=== PATIENT | female | born 1965 | race Caucasian/White ===

== ENCOUNTER 2021-05-17 09:00 | Outpatient (RCR) | payer MEDICARE, OTHER, SELFPAY ==
--- NOTE | 2021-05-17 11:34 | PTOPEVAL ---
Thank you for referring Michelle Kearney to [facility].? The patient is scheduled to be seen for therapy? 1 x/week for 8 weeks. Please review, sign, date and return this plan of care JIGNESH. I agree with and certify that the following plan of care is medically necessary. Referring Physician Date Attending Provider: Yocasta Robles, CAFETERIA ATTENDANT-BC Referring Provider: Yocasta Robles, CAFETERIA ATTENDANT-BC Diagnosis Grayson OA of knees Additional Evaluation Detail She received HH therapy for a few weeks 2 yrs ago. Current weight ~320# Dep with donning knee braces. She has had the braces since 03/26. She does not have access to a pool after therapy is completed. Subjective Information Report limitations with Query Text:As Reported By Patient/ walking and standing for the Family past year. States she is unable to walk from parking lot to door at the grocery store. She requires a motorize cart at the store. She is able to shari standing for 1-2 min intervals, then requires a seated rest. She performs most of her activities in seated position. Her hobbies consist of movies, shopping. Denies performing HEP. 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
--- NOTE | 2021-05-20 10:00 | PCPTNOTE ---
Patient called & cancelled scheduled appointment this date due to having a sick child.
--- NOTE | 2021-05-29 08:49 | PCPTNOTE ---
Patient called & cancelled scheduled appointment this date due to son being in the hospital.
--- NOTE | 2021-06-05 10:40 | PCPTNOTE ---
Patient did not show up for scheduled appointment this date. Called & spoke to patient & she stated she just bought her son home from the hospital & forgot to call to cancel.
--- NOTE | 2021-06-11 12:46 | PCPTNOTE ---
Addendum entered by Meliza Quinn, HEAD TRACK COACH 06/11/21 12:50: Informed patient during last call if she did not show up for her next appointment, she would be discharged & will need new orders to return. Original Note: Patient did not show up for scheduled appointment this date.
--- NOTE | 2021-06-11 15:30 | PCPTNOTE ---
Admitting Provider: Attending Provider: Yocasta Robles, PANTOMIMIST-BC Patient:Michelle Kearney Date of :1965 Physical Therapy Discharge Summary Patient has not returned for any further treatments since initial evaluation on 05/17/2021, therefore she will be discharged at this time. Patient?s had a total of 1 visits with 4 no show or canceled visits The goals have been not met. Thank you for referring this patient to [facility]. Please review, sign, date and return this discharge summary JIGNESH. I have been updated about the patient's current status and I agree with discharge from the above service at this time. Referring Physician Date
== END 2021-06-12 09:10 | disposition home or self-care (01) ==
LOC: ANHPT 09:00
PROVIDERS: PCP Internal Medicine; Referring Provider Nurse Practitioner Family; Visit Provider Nurse Practitioner Family
DX: M25.561 Pain in right knee (principal); M25.562 Pain in left knee; M17.0 Bilateral primary osteoarthritis of knee
CPT/HCPCS: 97110; 97163

== ENCOUNTER 2021-12-23 11:58 | Emergency (ER) | payer MEDICARE, MEDICAID, SELFPAY ==
--- NOTE | ~2021-12-23 | XR_ITS ---
EXAMINATION: XR chest 2V DATE: 12/23/2021 13:24 INDICATION: Chest pressure. Shortness of breath. TECHNIQUE: Frontal and lateral views of the chest were obtained. COMPARISON: Chest 2 views 08/13/2004, CT abdomen and pelvis 12/27/2015 FINDINGS: There is no pneumonia, pleural effusion, pneumothorax. The heart size is normal. IMPRESSION: 1. No acute cardiopulmonary disease. Reviewed, dictated and finalized at location A.
--- NOTE | 2021-12-23 12:00 | ECG_ITS ---
Measurements Intervals [place] Rate: 84 P: 53 DC: 162 QRS: -44 QRSD: 112 T: 16 QT: 378 QTc: 448 Interpretive Statements SINUS RHYTHM LEFT AXIS DEVIATION POSSIBLE LEFT ATRIAL ENLARGEMENT LOW QRS VOLTAGE IN PRECORDIAL LEADS INCOMPLETE RIGHT BUNDLE BRANCH BLOCK POOR R WAVE PROGRESSION, ANTERIOR LEADS BORDERLINE T WAVE ABNORMALITY- ANT/INF LEADS BASELINE ARTIFACT- I, III, AVR, AVL, AVF BORDERLINE ECG NO PREVIOUS ECG AVAILABLE FOR COMPARISON Electronically Signed On 12-23-2021 14:01:14 CDT by Parker Laurent D.O.
[2021-12-23 12:42] VITALS: BP 111/94; PULSE 82; RESP 20; TEMP 36.6; O2SAT 97
[2021-12-23 13:44] LABS: Basophils Percent Auto 0.5 % (0.2-1.2); Eosinophils Absolute Auto 0.2 K/mm3 (0-0.3); Eosinophils Percent Auto 3.1 % (0-4.4); Hematocrit 41.6 % (37.0-47.0); Hemoglobin 13.2 g/dL (12.0-15.0); Immature Granulocyte Absolute 0.02 K/mm3 (0.00-0.031); Immature Granulocyte Percent A 0.3 % (0-0.5); Lymphocytes Absolute Auto 2.47 K/mm3 (0.9-3.2); Lymphocytes Percent Auto 32.2 % (18.3-44.2); Mean Corpuscular HGB Conc 31.7 g/dl (32-36); Mean Corpuscular Hemoglobin 32.1 pg (26-34); Mean Corpuscular Volume 101.2 fl (80-100); Mean Platelet Volume 8.8 fl (7.4-10.4); Monocytes Absolute Auto 0.5 K/mm3 (0.1-0.6); Neutrophils Absolute Auto 4.4 K/mm3 (1.3-6.7); Neutrophils Percent Auto 57.9 % (45.5-73.1); Platelet Count Result 256 k/mm3 (150-375); Red Blood Count 4.11 M/mm3 (4.2-5.4); Red Cell Distribution Width 13.4 % (11.5-14.5); White Blood Count 7.7 K/mm3 (4.5-10.0)
[2021-12-23 13:56] LABS: Alanine Aminotransferase 15 U/L (6-35); Albumin Level 4.5 g/dL (3.5-5.1); Alkaline Phosphatase 132 U/L (38-126); Anion Gap 14 mmol/L (8-16); Aspartate Amino Transferase 20 U/L (14-36); Bilirubin,Total 0.8 mg/dL (0.2-1.3); Blood Urea Nitrogen 23 mg/dL (7-17); Calcium 8.8 mg/dL (8.4-10.2); Carbon Dioxide 26 mmol/L (22-30); Chloride 102 mmol/L (98-107); Estimated CRCL calculation 56 ml/min; Estimated Glomerular Filt Rate 39; Glucose 72 mg/dL (65-110); Lipase 139 U/L (23-300); Potassium 3.2 mmol/L (3.4-5.0); Sodium 142 mmol/L (137-145)
[2021-12-23 13:59] LABS: Prothrombin Time 13.1 Seconds (11.1-14.7)
[2021-12-23 14:07] LABS: Troponin I < 0.012 ng/mL (0.000-0.034)
[2021-12-23 16:26] VITALS: BP 153/98; PULSE 63; RESP 18; O2SAT 99
[2021-12-23 16:35] VITALS: BP 114/81; PULSE 63; RESP 20; O2SAT 99
--- NOTE | 2021-12-23 16:51 | ED.ARRPALP ---
HPI - Arrhythmia/Palpitations General Chief Complaint: Arrhythmia/Palpitations Stated Complaint: chest pain Time Seen by Provider: 12/23/21 16:51 History of Present Illness HPI narrative: Patient is a 56-year-old female with history of JOAQUIN, asthma, morbid obesity here for evaluation of multiple complaints. Patient states that she has felt her heart racing in her chest, has felt short of breath, and has felt a squeezing sensation in her chest for the past 3 days. Patient states all the symptoms began after she changed the timing of taking some of her psychiatric medications, including Caplyta, duloxetine, and hydroxyzine. Patient has been on these medications for years , but she is now taking them at nighttime per recommendation of her psychiatrist due to daytime sleepiness. She was sent by her psychiatrist today to the symptoms to rule out organic cause. Currently patient is very anxious , states that she is losing sleep over these complaints. No tremors, agitation. denies any leg swelling, orthopnea, fevers or chills, syncope, headaches. Denies cough. She is not suicidal or homicidal. Related Data Allergies Allergy/AdvReac Type Severity Reaction Status Date / Time adhesive tape Allergy Unknown blisters Verified 01/02/16 13:01 hydromorphone Allergy Unknown lowers Verified 02/12/17 12:07 blood pressure prednisolone Allergy Unknown Verified 05/03/15 08:12 prednisone Allergy Unknown lower Verified 02/12/17 12:06 heart rate HYDROMORPHONE HCL Allergy Unknown Uncoded 12/27/15 17:42 Review of Systems Review of Systems: Gen.: Denies fevers or chills Eyes: Denies eye pain or visual change ENT: Denies congestion Respiratory: Reports shortness of breath. Denies cough CV: Reports palpitations chest squeezing sensation GI: Denies abdominal pain nausea, emesis or diarrhea denies burning, urgency, frequency or hematuria Musculoskeletal: Denies back pain or muscle pain Neuro: Denies numbness, tingling, weakness or focal weakness Skin: Denies rash Except as documented, all other systems reviewed and negative [facility] Family History Family History (Updated 02/12/17 @ 12:16 by DOCTOR UNKNOWN) Father Diabetes mellitus Family history of multiple sclerosis Hypertension Family history of congestive heart failure Sibling Diabetes mellitus Hypertension Mother Diabetes mellitus Hypertension Family history of congestive heart failure Other Cerebrovascular accident Depression Family history of attention deficit hyperactivity disorder (ADHD) Family history of glaucoma Family history of hearing loss Family history of lung cancer Family history of malignant neoplasm Family history of malignant neoplasm of breast Family history of mental disorder Family history of obesity Social History Social History Smoking status: Never smoker Second hand tobacco smoke exposure: No Alcohol intake: never Exam Narrative: APPEARANCE: Well nourished. Head: Normocephalic and atraumatic. EYES: PERRLA/EOMI, conjunctivae clear NOSE: No nasal drainage EARS: External ear normal in appearance THROAT: Oropharynx is clear. Mucous membranes are moist. NECK: Supple. No adenopathy, no masses. RESPIRATORY: Airway patent, respirations nonlabored. Clear to auscultation bilaterally, no rales, rhonchi, wheezing. CARDIOVASCULAR: Regular rate and rhythm without murmurs, rubs, or gallops. ABDOMINAL: Normoactive bowel sounds. Soft, nontender, nondistended. No rebound tenderness or guarding. MUSCULOSKELETAL: Extremities are warm and well-perfused. Moves all extremities well. No edema. NEURO: Normal speech. No focal neurologic deficits. SKIN: Skin is warm and dry. No rashes. PSYCHIATRIC: Anxious mood. Jittery. Course Consultations Consultation #1: Spoke with Antwon Hilliard, psychiatric nurse practitioner, told me that patient use marijuana last night and has a history of anxiety type reaction after using this medicine.
[2021-12-23] MEDS: SODIUM CHLORIDE 0.9% IV 1,000 ML 999 ML IV CONT (17:34)
[2021-12-23 17:42] LABS: Troponin I < 0.012 ng/mL (0.000-0.034)
[2021-12-23 18:01] LABS: Thyroid Stimulating Hormone 0.538 uIU/mL (0.465-4.680)
[2021-12-23] MEDS: LORazepam (*CRX) 0.5 MG TABLET PO (18:16)
[2021-12-23 18:22] LABS: NT Pro B Type Natriuretic Pept 53 pg/mL (5-100)
== END 2021-12-23 19:00 | disposition left against medical advice (07) ==
PROVIDERS: Emergency Medicine; Physician Assistant; Emergency Provider Emergency Medicine; PCP Family Medicine Sports Medicine
DX: F41.9 Anxiety disorder, unspecified (principal); E66.01 Morbid (severe) obesity due to excess calories; Z68.27 Body mass index [BMI] 27.0-27.9, adult; I45.10 Unspecified right bundle-branch block; R94.31 Abnormal electrocardiogram [ECG] [EKG]; R06.02 Shortness of breath
CPT/HCPCS: 36415; 71046; 80053; 83690; 83880; 84443; 84484; 85025; 85610; 85730; 93005; 96360; 99284; A9270; J7030